=== PATIENT | female | born 2000 | race Caucasian/White ===

== ENCOUNTER 2021-07-05 07:28 | Inpatient (IN) | payer MEDICAID ==
[~2021-07-05] VITALS: Ht 162.6 cm; Wt 58.1 kg
[2021-07-05] MEDS ORDERED: BUTORPHANOL TARTRATE 2 MG/ML VIAL IV PRN (08:45)
[2021-07-05] MEDS ORDERED: DEXT 5%/LR + PITOCIN 20UNITS/L 1,000 ML IV SCH ×2 (08:45→15:45)
[2021-07-05] MEDS ORDERED: LIDOCAINE HCL 1% 20ML VIAL (Pyxis) INJ INFIL SCH (08:45)
[2021-07-05] MEDS ORDERED: MINERAL OIL 30ML BOTTLE PO SCH (08:45)
[2021-07-05] MEDS ORDERED: CARBOPROST TROMETHAMINE 250 MCG/ML AMPUL IM PRN (08:45)
[2021-07-05] MEDS ORDERED: NALOXONE HCL 0.4 MG/ML 1ML VIAL IM PRN (08:45)
[2021-07-05] MEDS ORDERED: METHYLERGONOVINE MALEATE 0.2 MG/ML IM PRN (08:45)
[2021-07-05] MEDS: LACTATED RINGERS 1,000 ML IV SCH ×2 (08:57→13:05)
[2021-07-05 09:20] LABS: BASOPHILS % 0.6 % (0.0-2.0); EOSINOPHILS % 0.7 % (0.0-5.0); HEMATOCRIT. 31.6 % (36.0-48.0); HEMOGLOBIN. 9.9 g/dL (12.0-16.0); LYMPHOCYTES % 22.8 % (20.0-50.0); MEAN CORPUSCULAR VOLUME 79.7 fL (81.0-99.0); MEAN PLATELET VOLUME 9.4 fl (7.4-10.4); MONOCYTES % 7.1 % (2.0-8.0); NEUTROPHILS % 68.8 % (40.0-76.0); PLATELET 293 x1000/uL (130-400); RED BLOOD CELL COUNT 3.96 mill/uL (4.2-5.4); RED CELL DISTRIBUTION WIDTH 18.5 % (11.6-14.6)
[2021-07-05 09:26] LABS: CHLORIDE 106 mEq/L (98-107)
[2021-07-05 09:33] LABS: D-DIMER 1.45 mg/L FEU (<0.50)
[2021-07-05 09:38] LABS: CLARITY URINE CLEAR (CLEAR); COLOR URINE YELLOW (YELLOW); KETONES URINE NEGATIVE (NEGATIVE); LEUKOCYTE ESTERASE URINE NEGATIVE (NEGATIVE); NITRITE URINE NEGATIVE (NEGATIVE); OCCULT BLOOD URINE 2+ (NEGATIVE); PH URINE 7.5 (4.5-8.0); PROTEIN URINE 1+ (NEGATIVE); SPECIFIC GRAVITY URINE 1.006 (1.005-1.030); UROBILINOGEN URINE 0.2 E.U./dL (0.2-1.0)
[2021-07-05 09:59] LABS: *AMPHETAMINES SCREEN URINE NEGATIVE (NEGATIVE); *BARBITURATES SCREEN URINE NEGATIVE (NEGATIVE); *BENZODIAZEPINES SCREEN URINE NEGATIVE (NEGATIVE)
[2021-07-05 10:00] LABS: *COCAINE SCREEN URINE NEGATIVE (NEGATIVE); CANNABINOID URINE SCREEN NEGATIVE (NEGATIVE); METHADONE URINE SCREEN NEGATIVE (NEGATIVE); OPIATES URINE SCREEN NEGATIVE (NEGATIVE); PHENCYCLIDINE URINE SCREEN NEGATIVE (NEGATIVE)
[2021-07-05] MEDS ORDERED: PENICILLIN G POTASSIUM 5 MMU in DEXT 5% WATER 100 ML IV SCH (10:00)
[2021-07-05 10:02] LABS: INR 0.9; PARTIAL THROMBOPLASTIN TIME 27.2 sec (23.4-31.0); PROTHROMBIN TIME 9.6 sec (9.6-11.0)
[2021-07-05 10:52] LABS: HEPATITIS B SURFACE ANTIGEN NEGATIVE
[2021-07-05] MEDS ORDERED: PENICILLIN G POTASSIUM 2.5 MMU in DEXTROSE 5% WATER 50 ML IV SCH (14:00)
[2021-07-05] MEDS ORDERED: IBUPROFEN 800MG TABLET PO PRN (15:45)
[2021-07-05] MEDS ORDERED: RHO(D) IMMUNE GLOBULIN 300 MCG/SYR IM PRN (15:45)
[2021-07-05] MEDS ORDERED: IBUPROFEN 400MG TABLET PO PRN (15:45)
[2021-07-05] MEDS ORDERED: LANOLIN OINT 7GM TUBE TOP PRN (15:45)
[2021-07-05 17:15] VITALS: BP 135/84
[2021-07-05 20:00] VITALS: BP 117/72
[2021-07-06 05:20] VITALS: BP 119/80
[2021-07-06 08:00] VITALS: BP 105/54
[2021-07-06 08:14] LABS: BASOPHILS % 0.4 % (0.0-2.0); EOSINOPHILS % 0.3 % (0.0-5.0); HEMOGLOBIN. 8.8 g/dL (12.0-16.0); LYMPHOCYTES % 23.5 % (20.0-50.0); MEAN CORPUSCULAR HEMOGLOBIN 25.8 pg (28.0-32.0); MEAN CORPUSCULAR VOLUME 79.4 fL (81.0-99.0); MEAN PLATELET VOLUME 9.2 fl (7.4-10.4); MONOCYTES % 8.3 % (2.0-8.0); NEUTROPHILS % 67.5 % (40.0-76.0); PLATELET 242 x1000/uL (130-400); RED CELL DISTRIBUTION WIDTH 18.3 % (11.6-14.6)
[2021-07-06] MEDS ORDERED: PRENATAL VIT/FE FUMARATE/FA TABLET PO SCH (09:00)
[2021-07-06 10:57] LABS: CHLORIDE 106 mEq/L (98-107)
[2021-07-06 16:15] VITALS: BP 115/67
== END 2021-07-06 17:50 | disposition home or self-care (01) | DRG 560 ==
LOC: 8 EST LDRP 07:28 → OBSVTOIN 07:28 → 8EST 17:03
PROVIDERS: ADMIT Obstetrics & Gynecology; ATTEND Obstetrics & Gynecology
PROC: 10E0XZZ Delivery of Products of Conception, External Approach (ICD-10-PCS; principal; 2021-07-05)
PROC: 0UQMXZZ Repair Vulva, External Approach (ICD-10-PCS; 2021-07-05)
DX: O69.81X0 Labor and delivery complicated by cord around neck, without compression, not applicable or unspecified (principal); Z37.0 Single live birth; O71.82 Other specified trauma to perineum and vulva; Z20.822 Contact with and (suspected) exposure to COVID-19; O77.0 Labor and delivery complicated by meconium in amniotic fluid; Z3A.38 38 weeks gestation of pregnancy
CPT/HCPCS: 36415; 80053; 80305; 81003; 84550; 85025; 85379; 85384; 86592; 86703; 86762; 86850; 86900; 87340; 87426; 99281; J2540; J2590; J3490; J7060